=== PATIENT | female | born 1940 ===

== ENCOUNTER 2020-10-25 16:30 | Inpatient (IN) | payer MEDICARE ==
[2020-10-25] MEDS ORDERED: Polyethylene Glycol 3350 17 GM Packet PO PRN (19:16)
[2020-10-25] MEDS: Ondansetron ODT 4 MG TAB PO SCH (21:07)
[2020-10-25] MEDS: rOPINIRole HCl 1 MG TAB PO SCH (21:07)
[2020-10-25] MEDS: Carvedilol 25 MG TAB PO SCH (21:07)
[2020-10-25] MEDS: Carbidopa/Levodopa CR 50-200 mg Tablet PO SCH (21:07)
[2020-10-25] MEDS: Donepezil HCl 10 MG TAB PO SCH (21:07)
[2020-10-25] MEDS: Atorvastatin Calcium 40 MG TAB PO SCH (21:08)
[2020-10-25] MEDS: Dorzolamide HCl 2% Ophth Soln 10 ml Bottle EA EYE SCH (21:08)
[2020-10-26] MEDS: Ondansetron ODT 4 MG TAB PO SCH (06:28)
[2020-10-26] MEDS ORDERED: Ondansetron ODT 4 MG TAB PO PRN (07:16)
[2020-10-26] MEDS: Carvedilol 25 MG TAB PO SCH ×2 (08:14→22:35)
[2020-10-26] MEDS: Spironolactone 25 MG TAB PO SCH (08:14)
[2020-10-26] MEDS: Ferrous Sulfate 325 MG TAB PO SCH (08:14)
[2020-10-26] MEDS: Carbidopa/Levodopa CR 50-200 mg Tablet PO SCH ×4 (08:14→22:35)
[2020-10-26] MEDS: Dorzolamide HCl 2% Ophth Soln 10 ml Bottle EA EYE SCH ×2 (08:15→22:36)
[2020-10-26] MEDS: Atorvastatin Calcium 40 MG TAB PO SCH ×2 (22:34→22:35)
[2020-10-26] MEDS: Acetaminophen 325 MG TAB PO PRN (22:35)
[2020-10-26] MEDS: rOPINIRole HCl 1 MG TAB PO SCH (22:35)
[2020-10-26] MEDS: Donepezil HCl 10 MG TAB PO SCH (22:35)
[2020-10-27 06:14] LABS: Anion Gap 13 mmol/L (10-20); BUN (Urea Nitrogen) 26 mg/dL (9.8-20.1); Calc. Creatinine Clearance 64 mL/min (70-130); Carbon Dioxide 24 mmol/L (23-31); Chloride 106 mmol/L (98-107); Glucose 75 mg/dL (83-110); Potassium 3.3 mmol/L (3.5-5.1); Sodium 140 mmol/L (136-145)
[2020-10-27 06:29] LABS: #Monocytes 0.4 thou/uL (0.11-0.59); #Neutrophils 3.9 thou/uL (1.40-6.50); %Basophils 0.5 % (0.0-1.0); %Eosinophils 0.2 % (0.0-10.0); %Lymphocytes 18.7 % (21.0-51.0); %Monocytes 6.9 % (0.0-10.0); %Neutrophils 73.8 % (42.0-75.0); Hemoglobin 7.7 g/dL (12.0-16.0); Mean Corpuscular HGB CONC 32.5 g/dL (32.0-36.0); Mean Corpuscular Hemoglobin 31.7 pg (27.0-31.0); Mean Corpuscular Volume 97.6 fL (78.0-98.0); Platelet Count 246 thou/uL (130-400); RBC Distribution Width 17.2 % (11.5-14.5); Red Blood Cell (RBC) Count 2.43 mill/uL (4.20-5.40); White Blood Cell (WBC) Count 5.3 thou/uL (4.8-10.8)
[2020-10-27] MEDS: Spironolactone 25 MG TAB PO SCH (09:11)
[2020-10-27] MEDS: Ferrous Sulfate 325 MG TAB PO SCH (09:11)
[2020-10-27] MEDS: Dorzolamide HCl 2% Ophth Soln 10 ml Bottle EA EYE SCH ×2 (09:11→21:56)
[2020-10-27] MEDS: Carvedilol 25 MG TAB PO SCH ×2 (09:11→21:55)
[2020-10-27] MEDS: Carbidopa/Levodopa CR 50-200 mg Tablet PO SCH ×4 (09:11→21:55)
[2020-10-27] MEDS: D5 0.9% NS w/ 20 mEq KCl 1,000 ML IV SCH (16:23)
[2020-10-27] MEDS: Acetaminophen 325 MG TAB PO PRN (21:54)
[2020-10-27] MEDS: Donepezil HCl 10 MG TAB PO SCH (21:55)
[2020-10-27] MEDS: rOPINIRole HCl 1 MG TAB PO SCH (21:55)
[2020-10-27] MEDS ORDERED: D5 1/2 NS w/20 mEq KCL 1,000 ML ONE (23:20)
[2020-10-28] MEDS: D5 0.9% NS w/ 20 mEq KCl 1,000 ML IV SCH ×2 (02:04→09:47)
[2020-10-28 05:43] LABS: White Blood Cell (WBC) Count 4.8 thou/uL (4.8-10.8)
[2020-10-28 05:44] LABS: #Monocytes 0.4 thou/uL (0.11-0.59); #Neutrophils 3.5 thou/uL (1.40-6.50); %Basophils 0.4 % (0.0-1.0); %Eosinophils 0.4 % (0.0-10.0); %Lymphocytes 20.1 % (21.0-51.0); %Monocytes 7.4 % (0.0-10.0); %Neutrophils 71.7 % (42.0-75.0); Hemoglobin 7.4 g/dL (12.0-16.0); Manual Diff?? NO; Mean Corpuscular HGB CONC 33.1 g/dL (32.0-36.0); Mean Corpuscular Hemoglobin 31.8 pg (27.0-31.0); Mean Corpuscular Volume 96.3 fL (78.0-98.0); Mean Platelet Volume 8.5 fL (7.4-10.4); Platelet Count 233 thou/uL (130-400); RBC Distribution Width 16.6 % (11.5-14.5); Red Blood Cell (RBC) Count 2.32 mill/uL (4.20-5.40)
[2020-10-28 05:49] LABS: Anion Gap 10 mmol/L (10-20); BUN (Urea Nitrogen) 20 mg/dL (9.8-20.1); Calc. Creatinine Clearance 71 mL/min (70-130); Calcium 7.6 mg/dL (7.8-10.44); Carbon Dioxide 24 mmol/L (23-31); Chloride 108 mmol/L (98-107); Glucose 111 mg/dL (83-110); Potassium 3.3 mmol/L (3.5-5.1); Sodium 139 mmol/L (136-145)
[2020-10-28] MEDS: Carbidopa/Levodopa CR 50-200 mg Tablet PO SCH ×4 (09:49→21:02)
[2020-10-28] MEDS: Carvedilol 25 MG TAB PO SCH ×2 (09:49→21:02)
[2020-10-28] MEDS: Ferrous Sulfate 325 MG TAB PO SCH (09:49)
[2020-10-28] MEDS: Dorzolamide HCl 2% Ophth Soln 10 ml Bottle EA EYE SCH ×2 (09:49→21:03)
[2020-10-28] MEDS ORDERED: Amino Acids 4.25 %/Dextrose 5% 2,000 ML BAG IV SCH (13:30)
[2020-10-28] MEDS: AA 4.25 %/CALCIUM/LYTES/D5W 2,000 ML IV SCH (15:53)
[2020-10-28] MEDS: cloNIDine 0.1 MG TAB PO PRN ×3 (15:53→21:54)
[2020-10-28] MEDS: Atorvastatin Calcium 40 MG TAB PO SCH (21:02)
[2020-10-28] MEDS: Donepezil HCl 10 MG TAB PO SCH (21:02)
[2020-10-28] MEDS: rOPINIRole HCl 1 MG TAB PO SCH (21:02)
[2020-10-29 05:14] LABS: #Neutrophils 3.5 thou/uL (1.40-6.50); %Basophils 0.5 % (0.0-1.0); %Eosinophils 0.9 % (0.0-10.0); %Lymphocytes 20.2 % (21.0-51.0); %Monocytes 8.8 % (0.0-10.0); %Neutrophils 69.6 % (42.0-75.0); Hemoglobin 7.8 g/dL (12.0-16.0); Manual Diff?? NO; Mean Corpuscular HGB CONC 32.5 g/dL (32.0-36.0); Mean Corpuscular Hemoglobin 31.3 pg (27.0-31.0); Mean Corpuscular Volume 96.3 fL (78.0-98.0); Mean Platelet Volume 7.5 fL (7.4-10.4); Platelet Count 210 thou/uL (130-400); RBC Distribution Width 16.7 % (11.5-14.5); Red Blood Cell (RBC) Count 2.48 mill/uL (4.20-5.40); White Blood Cell (WBC) Count 5.1 thou/uL (4.8-10.8)
[2020-10-29 05:15] LABS: #Monocytes 0.4 thou/uL (0.11-0.59)
[2020-10-29 05:25] LABS: Anion Gap 9 mmol/L (10-20); BUN (Urea Nitrogen) 20 mg/dL (9.8-20.1); Calc. Creatinine Clearance 74 mL/min (70-130); Calcium 7.6 mg/dL (7.8-10.44); Carbon Dioxide 26 mmol/L (23-31); Chloride 106 mmol/L (98-107); Glucose 122 mg/dL (83-110); Potassium 3.2 mmol/L (3.5-5.1); Sodium 138 mmol/L (136-145)
[2020-10-29] MEDS: cloNIDine 0.1 MG TAB PO PRN ×3 (05:29→22:22)
[2020-10-29] MEDS: Ferrous Sulfate 325 MG TAB PO SCH (08:07)
[2020-10-29] MEDS: Carbidopa/Levodopa CR 50-200 mg Tablet PO SCH ×4 (08:08→20:48)
[2020-10-29] MEDS: Carvedilol 25 MG TAB PO SCH ×2 (08:08→20:48)
[2020-10-29] MEDS: Dorzolamide HCl 2% Ophth Soln 10 ml Bottle EA EYE SCH ×2 (08:09→20:48)
[2020-10-29] MEDS: AA 4.25 %/CALCIUM/LYTES/D5W 2,000 ML IV SCH (13:27)
[2020-10-29] MEDS: Acetaminophen 325 MG TAB PO PRN (14:16)
[2020-10-29] MEDS ORDERED: Ferrous Sulfate 325 MG TAB PO SCH (17:00)
[2020-10-29] MEDS: Atorvastatin Calcium 40 MG TAB PO SCH (20:48)
[2020-10-29] MEDS: Donepezil HCl 10 MG TAB PO SCH (20:48)
[2020-10-29] MEDS: rOPINIRole HCl 1 MG TAB PO SCH (20:48)
[2020-10-29] MEDS: Amlodipine 5 MG TAB PO SCH (20:48)
[2020-10-29] MEDS ORDERED: Sodium Chloride 0.9% 10 ML ONE (21:40)
[2020-10-30 05:13] LABS: #Eosinphils 0.1 thou/uL (0.0-0.7); #Lymphocytes 1.2 thou/uL (1.20-3.40); #Monocytes 0.4 thou/uL (0.11-0.59); %Basophils 0.4 % (0.0-1.0); %Eosinophils 1.2 % (0.0-10.0); %Lymphocytes 20.6 % (21.0-51.0); %Monocytes 7.4 % (0.0-10.0); %Neutrophils 70.4 % (42.0-75.0); Hemoglobin 7.8 g/dL (12.0-16.0); Manual Diff?? NO; Mean Corpuscular HGB CONC 32.7 g/dL (32.0-36.0); Mean Corpuscular Hemoglobin 31.4 pg (27.0-31.0); Mean Corpuscular Volume 96.1 fL (78.0-98.0); Mean Platelet Volume 8.3 fL (7.4-10.4); Platelet Count 222 thou/uL (130-400); RBC Distribution Width 17.4 % (11.5-14.5); Red Blood Cell (RBC) Count 2.49 mill/uL (4.20-5.40); White Blood Cell (WBC) Count 5.7 thou/uL (4.8-10.8)
[2020-10-30 05:23] LABS: Anion Gap 9 mmol/L (10-20); Calc. Creatinine Clearance 75 mL/min (70-130); Calcium 7.7 mg/dL (7.8-10.44); Carbon Dioxide 25 mmol/L (23-31); Potassium 4.1 mmol/L (3.5-5.1)
[2020-10-30] MEDS: Carbidopa/Levodopa CR 50-200 mg Tablet PO SCH ×4 (08:13→21:23)
[2020-10-30] MEDS: Dorzolamide HCl 2% Ophth Soln 10 ml Bottle EA EYE SCH ×2 (08:13→21:23)
[2020-10-30] MEDS: Carvedilol 25 MG TAB PO SCH ×2 (11:54→21:31)
[2020-10-30] MEDS: Ferrous Sulfate 325 MG TAB PO SCH (17:28)
[2020-10-30] MEDS: Atorvastatin Calcium 40 MG TAB PO SCH (21:23)
[2020-10-30] MEDS: rOPINIRole HCl 1 MG TAB PO SCH (21:23)
[2020-10-30] MEDS: Donepezil HCl 10 MG TAB PO SCH (21:23)
[2020-10-30] MEDS: Amlodipine 5 MG TAB PO SCH (21:24)
[2020-10-30] MEDS: AA 4.25 %/CALCIUM/LYTES/D5W 2,000 ML IV SCH (21:29)
[2020-10-30] MEDS ORDERED: Sodium Chloride 0.9% 20 ML ONE (21:29)
[2020-10-30] MEDS: Acetaminophen 325 MG TAB PO PRN (21:32)
[2020-10-31] MEDS: Carbidopa/Levodopa CR 50-200 mg Tablet PO SCH ×4 (09:16→21:18)
[2020-10-31] MEDS: Dorzolamide HCl 2% Ophth Soln 10 ml Bottle EA EYE SCH ×2 (09:17→21:16)
[2020-10-31] MEDS: Carvedilol 25 MG TAB PO SCH ×2 (12:20→21:18)
[2020-10-31 14:07] LABS: Anion Gap 10 mmol/L (10-20); BUN (Urea Nitrogen) 22 mg/dL (9.8-20.1); Calc. Creatinine Clearance 78 mL/min (70-130); Calcium 7.7 mg/dL (7.8-10.44); Carbon Dioxide 22 mmol/L (23-31); Chloride 99 mmol/L (98-107); Glucose 105 mg/dL (83-110); Potassium 4.4 mmol/L (3.5-5.1); Sodium 127 mmol/L (136-145)
[2020-10-31 14:12] LABS: BUN (Urea Nitrogen) 22 mg/dL (9.8-20.1); Chloride 103 mmol/L (98-107); Glucose 119 mg/dL (83-110); Sodium 133 mmol/L (136-145)
[2020-10-31 16:08] LABS: Anisocytosis SLIGHT = 6-15 cells (100X) (0-5/hpf); Band 1 % (5-11); Eosinophils 1 % (0-10); Hemoglobin 8.2 g/dL (12.0-16.0); Lymphocytes 11 % (21-51); MDiff Complete? YES; Mean Corpuscular HGB CONC 32.6 g/dL (32.0-36.0); Mean Corpuscular Volume 95.2 fL (78.0-98.0); Mean Platelet Volume 9.9 fL (7.4-10.4); Monocytes 2 % (0-10); Neutrophil 85 % (42-75); Platelet Count 220 thou/uL (130-400); RBC Distribution Width 17.4 % (11.5-14.5); Red Blood Cell (RBC) Count 2.65 mill/uL (4.20-5.40); White Blood Cell (WBC) Count 8.1 thou/uL (4.8-10.8)
[2020-10-31] MEDS: Ferrous Sulfate 325 MG TAB PO SCH (17:39)
[2020-10-31] MEDS: rOPINIRole HCl 1 MG TAB PO SCH (21:17)
[2020-10-31] MEDS: Atorvastatin Calcium 40 MG TAB PO SCH (21:18)
[2020-10-31] MEDS: Amlodipine 5 MG TAB PO SCH (21:18)
[2020-10-31] MEDS: Acetaminophen 325 MG TAB PO PRN (21:18)
[2020-10-31] MEDS: Donepezil HCl 10 MG TAB PO SCH (21:18)
[2020-11-01] MEDS: AA 4.25 %/CALCIUM/LYTES/D5W 2,000 ML IV SCH (05:16)
[2020-11-01] MEDS: Acetaminophen 325 MG TAB PO PRN (09:45)
[2020-11-01] MEDS: Carbidopa/Levodopa CR 50-200 mg Tablet PO SCH ×4 (09:45→22:02)
[2020-11-01] MEDS: Dorzolamide HCl 2% Ophth Soln 10 ml Bottle EA EYE SCH ×2 (09:49→22:34)
[2020-11-01] MEDS: Carvedilol 25 MG TAB PO SCH ×2 (12:24→22:01)
[2020-11-01] MEDS: Ferrous Sulfate 325 MG TAB PO SCH (17:26)
[2020-11-01] MEDS: Donepezil HCl 10 MG TAB PO SCH (22:02)
[2020-11-01] MEDS: rOPINIRole HCl 1 MG TAB PO SCH (22:02)
[2020-11-01] MEDS: Amlodipine 5 MG TAB PO SCH (22:02)
[2020-11-01] MEDS: Atorvastatin Calcium 40 MG TAB PO SCH (22:02)
[2020-11-02] MEDS: AA 4.25 %/CALCIUM/LYTES/D5W 2,000 ML IV SCH (04:51)
[2020-11-02] MEDS: Carbidopa/Levodopa CR 50-200 mg Tablet PO SCH ×4 (09:24→22:01)
[2020-11-02] MEDS: Dorzolamide HCl 2% Ophth Soln 10 ml Bottle EA EYE SCH ×2 (09:25→22:00)
[2020-11-02 10:33] VITALS: BMI 20.4
[2020-11-02] MEDS: Carvedilol 25 MG TAB PO SCH ×2 (13:10→22:00)
[2020-11-02] MEDS: Ferrous Sulfate 325 MG TAB PO SCH (17:22)
[2020-11-02] MEDS: rOPINIRole HCl 1 MG TAB PO SCH (22:00)
[2020-11-02] MEDS: Atorvastatin Calcium 40 MG TAB PO SCH (22:00)
[2020-11-02] MEDS: Donepezil HCl 10 MG TAB PO SCH (22:00)
[2020-11-02] MEDS: Amlodipine 5 MG TAB PO SCH (22:01)
[2020-11-03] MEDS: AA 4.25 %/CALCIUM/LYTES/D5W 2,000 ML IV SCH (04:39)
[2020-11-03] MEDS: Dorzolamide HCl 2% Ophth Soln 10 ml Bottle EA EYE SCH ×2 (08:38→21:50)
[2020-11-03] MEDS: Carbidopa/Levodopa CR 50-200 mg Tablet PO SCH ×4 (08:39→21:49)
[2020-11-03 11:03] LABS: #Lymphocytes 0.8 thou/uL (1.20-3.40); #Monocytes 0.5 thou/uL (0.11-0.59); #Neutrophils 4.7 thou/uL (1.40-6.50); %Basophils 0.7 % (0.0-1.0); %Eosinophils 0.5 % (0.0-10.0); %Lymphocytes 12.5 % (21.0-51.0); %Monocytes 8.4 % (0.0-10.0); %Neutrophils 77.8 % (42.0-75.0); Hemoglobin 7.5 g/dL (12.0-16.0); Mean Corpuscular HGB CONC 32.8 g/dL (32.0-36.0); Mean Corpuscular Hemoglobin 30.8 pg (27.0-31.0); Mean Platelet Volume 10.5 fL (7.4-10.4); Platelet Count 246 thou/uL (130-400); RBC Distribution Width 17.8 % (11.5-14.5); Red Blood Cell (RBC) Count 2.44 mill/uL (4.20-5.40)
[2020-11-03 11:13] LABS: Anion Gap 11 mmol/L (10-20); BUN (Urea Nitrogen) 30 mg/dL (9.8-20.1); Calc. Creatinine Clearance 79 mL/min (70-130); Calcium 7.7 mg/dL (7.8-10.44); Carbon Dioxide 20 mmol/L (23-31); Chloride 100 mmol/L (98-107); Glucose 113 mg/dL (83-110); Potassium 4.9 mmol/L (3.5-5.1); Sodium 126 mmol/L (136-145)
[2020-11-03] MEDS: Acetaminophen 325 MG TAB PO PRN (11:21)
[2020-11-03] MEDS: Carvedilol 25 MG TAB PO SCH ×2 (12:25→21:49)
[2020-11-03] MEDS ORDERED: Bisacodyl 10 MG SUPP PR PRN (16:45)
[2020-11-03] MEDS: Ferrous Sulfate 325 MG TAB PO SCH (17:35)
[2020-11-03] MEDS: Amlodipine 5 MG TAB PO SCH (21:49)
[2020-11-03] MEDS: rOPINIRole HCl 1 MG TAB PO SCH (21:49)
[2020-11-03] MEDS: Donepezil HCl 10 MG TAB PO SCH (21:49)
[2020-11-03] MEDS: Atorvastatin Calcium 40 MG TAB PO SCH (21:49)
[2020-11-03] MEDS ORDERED: Sodium Chloride 0.9% 10 ML ONE (22:11)
[2020-11-04] MEDS: AA 4.25 %/CALCIUM/LYTES/D5W 2,000 ML IV SCH (04:01)
[2020-11-04 05:29] LABS: Anion Gap 10 mmol/L (10-20); BUN (Urea Nitrogen) 29 mg/dL (9.8-20.1); Calc. Creatinine Clearance 80 mL/min (70-130); Calcium 7.8 mg/dL (7.8-10.44); Carbon Dioxide 22 mmol/L (23-31); Chloride 102 mmol/L (98-107); Glucose 101 mg/dL (83-110); Potassium 4.6 mmol/L (3.5-5.1); Sodium 129 mmol/L (136-145)
[2020-11-04] MEDS ORDERED: Sodium Chloride 0.9% 10 ML ONE (09:42)
[2020-11-04] MEDS: Carbidopa/Levodopa CR 50-200 mg Tablet PO SCH ×4 (09:46→21:25)
[2020-11-04] MEDS: Dorzolamide HCl 2% Ophth Soln 10 ml Bottle EA EYE SCH ×2 (09:46→21:26)
[2020-11-04] MEDS: Carvedilol 25 MG TAB PO SCH ×2 (13:04→21:25)
[2020-11-04] MEDS: Ferrous Sulfate 325 MG TAB PO SCH (17:10)
[2020-11-04] MEDS: rOPINIRole HCl 1 MG TAB PO SCH (21:25)
[2020-11-04] MEDS: Atorvastatin Calcium 40 MG TAB PO SCH (21:25)
[2020-11-04] MEDS: Amlodipine 5 MG TAB PO SCH (21:25)
[2020-11-04] MEDS: Donepezil HCl 10 MG TAB PO SCH (21:25)
[2020-11-05] MEDS: Carbidopa/Levodopa CR 50-200 mg Tablet PO SCH ×4 (08:57→20:31)
[2020-11-05] MEDS: Dorzolamide HCl 2% Ophth Soln 10 ml Bottle EA EYE SCH ×2 (09:05→20:33)
[2020-11-05] MEDS: Carvedilol 25 MG TAB PO SCH ×2 (12:49→20:31)
[2020-11-05] MEDS: Ferrous Sulfate 325 MG TAB PO SCH (18:11)
[2020-11-05] MEDS: Atorvastatin Calcium 40 MG TAB PO SCH (20:31)
[2020-11-05] MEDS: Donepezil HCl 10 MG TAB PO SCH (20:31)
[2020-11-05] MEDS: rOPINIRole HCl 1 MG TAB PO SCH (20:31)
[2020-11-05] MEDS: Amlodipine 5 MG TAB PO SCH (20:32)
[2020-11-06] MEDS: Dorzolamide HCl 2% Ophth Soln 10 ml Bottle EA EYE SCH ×2 (09:04→21:29)
[2020-11-06] MEDS: Carbidopa/Levodopa CR 50-200 mg Tablet PO SCH ×4 (09:04→21:25)
[2020-11-06] MEDS: Carvedilol 25 MG TAB PO SCH ×2 (12:59→21:29)
[2020-11-06] MEDS: Ferrous Sulfate 325 MG TAB PO SCH (17:22)
[2020-11-06] MEDS: Atorvastatin Calcium 40 MG TAB PO SCH (21:28)
[2020-11-06] MEDS: Amlodipine 5 MG TAB PO SCH (21:28)
[2020-11-06] MEDS: rOPINIRole HCl 1 MG TAB PO SCH (21:28)
[2020-11-06] MEDS: Donepezil HCl 10 MG TAB PO SCH (21:29)
[2020-11-07 08:35] VITALS: TEMP 96.8
[2020-11-07] MEDS: Carbidopa/Levodopa CR 50-200 mg Tablet PO SCH ×2 (09:17→12:14)
[2020-11-07] MEDS: Dorzolamide HCl 2% Ophth Soln 10 ml Bottle EA EYE SCH (09:17)
[2020-11-07] MEDS: Carvedilol 25 MG TAB PO SCH (12:14)
[2020-11-07 12:54] VITALS: BP 139/60
== END 2020-11-07 14:35 | disposition hospice, home (50) | DRG 178 ==
LOC: NAV ACUTE 16:30
PROVIDERS: ADMIT Internal Medicine; ATTEND Internal Medicine
PROC: 8E0ZXY6 Isolation (ICD-10-PCS; principal; 2020-10-25)
DX: U07.1 COVID-19 (principal); D62 Acute posthemorrhagic anemia; I82.409 Acute embolism and thrombosis of unspecified deep veins of unspecified lower extremity; Z68.1 Body mass index [BMI] 19.9 or less, adult; I25.10 Atherosclerotic heart disease of native coronary artery without angina pectoris; I10 Essential (primary) hypertension; Z66 Do not resuscitate; E78.5 Hyperlipidemia, unspecified; Z51.5 Encounter for palliative care; G20 Parkinson's disease; F03.90 Unspecified dementia, unspecified severity, without behavioral disturbance, psychotic disturbance, mood disturbance, and anxiety; Z86.73 Personal history of transient ischemic attack (TIA), and cerebral infarction without residual deficits; Z86.711 Personal history of pulmonary embolism; Z79.01 Long term (current) use of anticoagulants; Z98.42 Cataract extraction status, left eye; Z98.41 Cataract extraction status, right eye; Z90.710 Acquired absence of both cervix and uterus; Z90.49 Acquired absence of other specified parts of digestive tract; Z88.5 Allergy status to narcotic agent; E87.6 Hypokalemia; H40.10X0 Unspecified open-angle glaucoma, stage unspecified; R53.81 Other malaise; Z95.828 Presence of other vascular implants and grafts; R62.7 Adult failure to thrive
CPT/HCPCS: 36416; 80048; 85025; J3480; Q0162